=== PATIENT | male | born 1965 | race African-American/Black ===

== ENCOUNTER 2019-02-26 05:27 | Day surgery (SDC) | payer OTHER ==
[~2019-02-26] VITALS: Ht 170.2 cm; Wt 80.3 kg
[2019-02-26] MEDS ORDERED: FISH OIL 1,0001 CA1 PO (06:25)
[2019-02-26] MEDS ORDERED: CENTRUM MEN'S1 EACH PO (06:25)
[2019-02-26 06:38] VITALS: BP 142/82; Ht 170.2 cm; Wt 80.3 kg
[2019-02-26 06:43] LABS: ANION GAP 11.4 mmol/L (8-16); BILIRUBIN - TOTAL 0.48 mg/dL (0.2-1.3); CALCIUM 8.8 mg/dL (8.5-10.1); CARBON DIOXIDE 28.8 mmol/L (21.0-32.0); CREATININE - SERUM 1.3 mg/dL (0.6-1.3); POTASSIUM - SERUM 4.2 mmol/L (3.5-5.1); PROTEIN - SERUM 7.1 g/dL (6.4-8.2)
[2019-02-26 06:44] LABS: APTT 30.5 SECONDS (22.8-39.4); INR 1.01 (0.85-1.17); PROTIME 12.8 SECONDS (11.6-15.0)
[2019-02-26] MEDS ORDERED: METOPROLOL TART25 MG PO (06:49)
[2019-02-26 08:37] LABS: HEMATOCRIT 44.5 % (42.0-54.0); HEMOGLOBIN 15.7 g/dL (13.5-17.5); MCH 30.8 pg (26.0-34.0); MCHC 35.3 g/dL (31.0-37.0); MCV 87.3 fL (80.0-100.0); MEAN PLATELET VOLUME 11.2 fL (7.4-10.4); RBC 5.1 10x6/uL (4.20-6.10); WBC 4.1 10x3/uL (4.8-10.8)
--- NOTE | 2019-02-26 13:32 | NUR ---
1115 IV REMOVED 1130 PT D/C
--- NOTE | 2019-02-27 16:24 | OP ---
PATIENT NAME: LORENZA JAEGER MEDICAL RECORD: [id number] :67 LOCATION:D.OPS ADMISSION DATE: SURGEON: SHELLY WOLF MD DATE OF OPERATION: 02/26/2019 PREOPERATIVE DIAGNOSIS: Symptomatic lipoma of the left forehead. POSTOPERATIVE DIAGNOSES: Symptomatic lipoma of the left forehead. PROCEDURE: Excision of forehead lipoma. SURGEON: Shelly Wolf MD VESSEL SLAGMAN: None. BLOOD LOSS: About 50 cc. ANESTHESIA: General. COMPLICATIONS: None. The risks, possible complications and alternatives of the procedure were explained to the patient. He elects to proceed. The discussion specifically included but was not limited to, bleeding requiring emergency reoperation, infection, and regrowth of the lipoma. The lipoma was then marked. OPERATIVE COURSE: The patient was conveyed to the operating room electively on 02/26/2019. General anesthesia was induced by anesthesia staff. The face was sterilely prepped and draped. Transverse incision was accomplished over the lipoma. I dissected down to the adipose tissue. This lipoma was not well circumscribed and typically with some blunt dissection, these lipomas will pop out if pressure is applied but his did not. This was an intramuscular lipoma. It was removed in a piecemeal fashion. Hemostasis was achieved with the electrocautery. The skin was approximated with a single interrupted 3-0 Vicryl suture and then Dermabond. The patient has some swelling post-procedurely and the swelling has actually made it look like that there is a residual lipoma. With time, the swelling should go down and I think he is going to have a good cosmetic result. He has good function and raising the left eyebrow and also squinting. He has sensation around the incision, indicating that there was no nervous injury. It should be noted that the patient had some bradycardia preoperatively. His heart rate was 37. He is on metoprolol. TRANSINT:[id number] Voice Confirmation ID: [id number] DOCUMENT ID: [id number] 02/27/2019 Edited for extermination supervisor error, dmm. OPERATIVE REPORT [id number] HEIDEIMANISHELLY CUNNINGHAM MD at 1624 CC: [id number] DICTATION DATE: 02/26/19 0946 SALON SUPERVISOR: 02/26/19 1008 [facility] 02/26/19 [facility] [address] [place] [address]
== END 2019-02-26 11:30 ==
LOC: D.OPS 05:27
PROVIDERS: Anesthesiology; ATTEND Surgery
DX: D17.0 Benign lipomatous neoplasm of skin and subcutaneous tissue of head, face and neck (principal); R00.1 Bradycardia, unspecified